=== PATIENT | female | born 1985 | race Caucasian/White ===

== ENCOUNTER 2017-08-30 13:49 | Observation (INO) | payer MEDICAID ==
[~2017-08-30] VITALS: Ht 170.2 cm; Wt 93.2 kg
[2017-08-30 14:40] LABS: BASOPHILS # (AUTO) 0.04 x10^3/uL (0-0.1); BASOPHILS % (AUTO) 0 % (0-1); EOSINOPHILS # (AUTO) 0.08 x10^3/uL (0-0.4); EOSINOPHILS % (AUTO) 1 % (1-7); LYMPHOCYTES # (AUTO) 2.19 x10^3/uL (1-3.4); LYMPHOCYTES % (AUTO) 12 % (22-44); MD NO; MEAN CORPUSCULAR HEMOGLOBIN 31.8 pg (27.0-34.8); MEAN CORPUSCULAR HGB CONC 34.4 g/dL (32.4-35.8); MEAN CORPUSCULAR VOLUME 92.5 fL (80-100); MEAN PLATELET VOLUME 10.2 fL (7.4-10.4); MONOCYTES # (AUTO) 0.91 x10^3/uL (0.2-0.8); MONOCYTES % (AUTO) 5 % (2-9); NEUTROPHILS # (AUTO) 14.46 x10^3/uL (1.8-6.8); NEUTROPHILS % (AUTO) 82 % (42-75); PLATELET COUNT 202 x10^3/uL (130-400); RED BLOOD COUNT 4.52 x10^6/uL (3.82-5.3); RED CELL DISTRIBUTION WIDTH 14.1 % (9.6-15.2)
[2017-08-30 14:47] LABS: MICROSCOPIC INDICATED
[2017-08-30 14:48] LABS: ALANINE AMINOTRANSFERASE 25 U/L (12-78); ALBUMIN 2.5 g/dL (3.4-5.0); ANION GAP 11 mmol/L (5-15); BILIRUBIN, DIRECT 0.1 mg/dL (0.1-0.2); CHLORIDE 105 mmol/L (98-107)
[2017-08-30 14:51] LABS: ALKALINE PHOSPHATASE 488 U/L (45-117); BILIRUBIN,TOTAL 0.9 mg/dL (0.2-1.0); CREATININE 0.58 mg/dL (0.55-1.02); TOTAL PROTEIN 6.4 g/dL (6.4-8.2)
[2017-08-30 15:00] LABS: AMPHETAMINE SCREEN, URINE Negative (Negative); BARBITURATE SCREEN, URINE Negative (Negative); BENZODIAZEPINE SCREEN, URINE Negative (Negative); CANNABINOID SCREEN, URINE Positive (Negative); COCAINE SCREEN, URINE Negative (Negative); METHADONE SCREEN, URINE Negative (Negative); OPIATE SCREEN, URINE Negative (Negative)
[2017-08-30 15:04] LABS: AMNISURE NEGATIVE (NEGATIVE)
[2017-08-30 15:17] LABS: FERNING TEST FERNING NOT PRESENT (NEGATIVE)
[2017-08-30] MEDS ORDERED: CALCIUM CARBONATE 500 MG TAB.CHEW ONE (15:50)
[2017-08-30 15:57] VITALS: BP 117/58
[2017-08-30] MEDS ORDERED: CALCIUM CARBONATE 500 MG TAB.CHEW PO PRN (16:00)
[2017-08-30] MEDS ORDERED: PLEASE ENTER ALLERGIES MC SCH (16:04)
[2017-08-30] MEDS ORDERED: PREN1TAB69 PO (17:09)
[2017-08-30] MEDS ORDERED: DOCU-131 PO (17:10)
== END 2017-08-30 18:10 | disposition home or self-care (01) ==
LOC: LDOP 13:49 → LDIP 13:50
PROVIDERS: ADMIT Obstetrics & Gynecology Maternal & Fetal Medicine; ATTEND Obstetrics & Gynecology Maternal & Fetal Medicine
DX: O14.93 Unspecified pre-eclampsia, third trimester (principal); Z3A.39 39 weeks gestation of pregnancy
CPT/HCPCS: 36415; 59025; 76805; 80053; 80307; 81001; 82248; 82570; 84112; 84156; 84550; 85025; 86592; 86762; 86803; 86850; 86900; 87340; 87806; 89060; G0378; 99201; G0463; G0475; Q0114